=== PATIENT | female | born 1930 | race Caucasian/White ===

== ENCOUNTER 2017-07-29 02:08 | Emergency (ER) | payer SELFPAY ==
[~2017-07-29] VITALS: Ht 162.6 cm; Wt 54.4 kg
[2017-07-29 02:51] LABS: Basophils # (auto) 0.1 uL; Basophils % (auto) 0.6 % (0.0-2.0); Eosinophils # (auto) 0.2 uL; Eosinophils % (auto) 1.8 % (0.0-7.0); Hematocrit 40.4 % (36.0-46.0); Hemoglobin 13.7 g/dL (12.2-16.2); Lymphocytes # (auto) 1.6 uL; Lymphocytes % (auto) 18.7 % (10.0-50.0); Mean Corpuscular Hemoglobin 33.4 pg (28.0-32.0); Mean Corpuscular Hgb Conc. 33.9 g/dL (32.0-36.0); Mean Corpuscular Volume 98.6 fL (80.0-100.0); Monocytes # (auto) 0.6 uL; Monocytes % (auto) 6.8 % (0.0-12.0); Neutrophils % (auto) 72.1 % (37.0-80.0); Platelet Count (auto) 238 10^3/uL (140-450); Red Cell Distribution Width 13.8 % (11.8-14.3); White Blood Cell 8.4 10^3/uL (4.4-10.8)
[2017-07-29 03:05] LABS: Partial Thromboplastin Time 21.6 sec (22.64-33.71); Prothrombin Time 10.9 sec (9.37-12.3)
[2017-07-29 03:08] LABS: Alanine Aminotransferase 26 U/L (13-56); Albumin 3.6 g/dL (3.4-5.0); Anion Gap 8 (5-15); Aspartate Aminotransferase 25 U/L (15-37); BUN/Creatinine Ratio 20.9; Blood Urea Nitrogen 24 mg/dL (7-18); Calcium 8.9 mg/dL (8.5-10.1); Carbon Dioxide 27 mmol/L (21-32); Chloride 107 mmol/L (98-107); GFR African American 57 mL/min; GFR Non-African American 47 mL/min; Glucose 120 mg/dL (74-106); Potassium 3.5 mmol/L (3.5-5.1); Sodium 142 mmol/L (136-145)
[2017-07-29 03:13] LABS: Alkaline Phosphatase 77 U/L (45-117); Bilirubin, Total 0.7 mg/dL (0.2-1.0); Total Protein 7.1 g/dL (6.4-8.2)
[2017-07-29] MEDS ORDERED: LEVOFLOXACIN 500 MG TAB PO ONE (09:00)
[2017-07-29 09:56] VITALS: BP 128/67
== END 2017-07-29 10:19 | disposition home or self-care (01) ==
LOC: EDBD 02:08 → ER 02:13
DX: J18.9 Pneumonia, unspecified organism (principal); R53.1 Weakness
CPT/HCPCS: 36415; 71045; 80053; 83880; 84484; 85025; 85610; 85730; 93005